=== PATIENT | female | born 1945 | race Caucasian/White ===

== ENCOUNTER → 2020-02-08 16:07 | Outpatient (CLI) | payer MEDICARE, SELFPAY ==
--- NOTE | ~2020-02-08 | MM_ITS ---
EXAMINATION: MM screening jazmín BI w lani HISTORY: Screening mammogram TECHNIQUE: Craniocaudal and mediolateral oblique 3-D tomosynthesis images were obtained and synthetic 2-D images were generated. CAD analysis was submitted and interpreted. COMPARISON: 02/25/2017, 04/02/2014, 06/27/2007 bilateral digital screening mammogram examination BREAST PARENCHYMAL COMPOSITION: There are scattered areas of fibroglandular density. FINDINGS: Stable mild asymmetry There is no evidence of suspicious mass, calcification, or architectu ral distortion to suggest malignancy in either breast. There has been no suspicious interval change. IMPRESSION: 1. No mammographic evidence of malignancy. 2. Recommend routine screening mammography in one year. BI-RADS Category 2: Benign finding(s). Reviewed, dictated and finalized at location A.
== END ==
PROVIDERS: PCP Physician Assistant; Visit Provider Physician Assistant
DX: Z12.31 Encounter for screening mammogram for malignant neoplasm of breast (principal)
CPT/HCPCS: 77063; 77067

== ENCOUNTER → 2022-07-28 13:21 | Outpatient (CLI) | payer MEDICARE, SELFPAY ==
--- NOTE | ~2022-07-28 | DEXA_ITS ---
Bone Density Report Name: LEX JOHNSON Age: 77 Sex: Female Ethnicity: White Date of : 1945 Indication: osteopenia; height loss; postmenopausal Referring Provider: MARISELA TORRES Study: Bone densitometry was performed. Exam Date: July 28, 2022 Accession number: [id number] Bone Density: Region BMD T-score Z-score Classification AP Spine (L1-L4) 1.047 0.0 2.5 Normal Femoral Neck (Left) 0.749 -0.9 1.3 Normal Total Hip (Left) 1.018 0.6 2.5 Normal Femoral Neck (Right) 0.763 -0.8 1.4 Normal Total Hip (Right) 0.989 0.4 2.3 Normal Total Hip Mean 1.004 0.5 2.4 Normal World Health Organization criteria for BMD impression classify patients as: Normal (T-score at or above -1.0), Osteopenia (T-score between -1.0 and -2.5), or Osteoporosis (T-score at or below -2.5). 10-year Fracture Risk: FRAX not reported because: All T-scores for Spine Total, Hip Total, Femoral Neck at or above -1.0 Previous Exams: Region Exam Age BMD T-score BMD Change BMD Change Date g/cm2 vs Baseline vs Previous AP Spine(L1-L4) 07/28/2022 77 1.047 0.0 0.144* 0.131* 12/14/2005 60 0.916 -1.2 0.013 0.013 06/05/2004 58 0.903 -1.3 Total Hip(Left) 07/28/2022 77 1.018 0.6 0.067* 0.071* 12/14/2005 60 0.947 0.0 -0.004 -0.004 06/05/2004 58 0.951 0.1 Total Hip(Right) 07/28/2022 77 0.989 0.4 -0.038* -0.003 12/14/2005 60 0.992 0.4 -0.035* -0.035* 06/05/2004 58 1.027 0.7 *Denotes significance at 95% confidence level, LSC for AP Spine = 0.022 g/cm2, LSC for Total Hip = 0.027 g/cm2 Clinical Information Provided by Patient: Has used the following medications: Vitamin D, Calcium Patient maximum height was 69 Menopause Age: 52 No regular weight bearing exercise Drinks caffeinated beverages Onset of menses at age 15 Number of children 2 Impression: The patient has normal bone mass. No significant bone loss was observed. Discussion: BONE DENSITY IS ABOVE THE MINIMUM DESIRABLE LEVEL AT ALL SKELETAL SITES TESTED. This patient?s bone mineral density is above the minimum desirable level (T-score -1.0 or better) at all sites measured. The patient should follow a healthful lifestyle (good nutrition with adequate calcium and vitamin D, and appropriate weight-bearing exercise). Follow-Up: Consider repeating this study in 5 years or sooner
--- NOTE | ~2022-07-28 | MM_ITS ---
EXAMINATION: MM screening jazmín BI w lani HISTORY: Screening mammogram, family history of breast cancer in her mother. TECHNIQUE: Craniocaudal and mediolateral oblique 3-D tomosynthesis images were obtained and synthetic 2-D images were generated. CAD analysis was submitted and interpreted. COMPARISON: 02/08/2020, 02/25/2017, 04/02/2014 BREAST PARENCHYMAL COMPOSITION: There are scattered areas of fibroglandular density. FINDINGS: RIGHT BREAST: No suspicious mass, calcification, or architectural distortion are identified to sugges t malignancy. There has been no suspicious interval change. LEFT BREAST: An asymmetry is present in the anterior/middle third of the slightly upper breast on the mediolateral oblique view 4 cm from the nipple. IMPRESSION: 1. Left breast asymmetry. 2. Additional mammographic views and possible breast ultrasound are recommended. BI-RADS Category 0: Incomplete: Needs additional imaging evaluation. Reviewed, dictated and finalized at location A. 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 Left breast asymmetry. 2. Additional mammographic views and possible breast ultrasound are recommended . BI-RADS Category 0: Incomplete: Needs additional imaging evaluation.
== END ==
PROVIDERS: PCP Family Medicine Adolescent Medicine; Visit Provider Physician Assistant
DX: Z12.31 Encounter for screening mammogram for malignant neoplasm of breast (principal); Z78.0 Asymptomatic menopausal state; R92.8 Other abnormal and inconclusive findings on diagnostic imaging of breast
CPT/HCPCS: 77063; 77067; 77080

== ENCOUNTER → 2022-08-20 07:45 | Outpatient (CLI) | payer MEDICARE, SELFPAY ==
--- NOTE | ~2022-08-20 | MMUS_ITS ---
EXAMINATION: MM diagnostic jazmín LT w lani, US breast LT limited HISTORY: Follow-up left breast asymmetry TECHNIQUE: Additional 3-D tomosynthesis images of the left breast were performed and synthetic 2-D im ages were generated. CAD analysis was submitted and interpreted. High resolution Limited left breast ultrasound was performed. COMPARISON: Comparison to multiple prior studies sequentially, with oldest reviewed study dated 03/23. BREAST PARENCHYMAL COMPOSITION: BREAST PARENCHYMAL COMPOSITION: There are scattered areas of fibroglandular density. FINDINGS: MAMMOGRAPHIC FINDINGS: There is a focal asymmetry superiorly and posteriorly in the left breast on MLO and mediolateral view s. The area of possible architectural distortion in the left breast superiorly and anteriorly is less apparent with spot compression views. ULTRASOUND: Limited left breast ultrasound: 1-2:00, 9 cm from the nipple there is an antiparallel hypoechoic mass with somewhat irregular margins with no internal vascularity measuring 8 x 8 x 7 mm. At 3:00, 4 cm f rom the nipple there is a 6 mm intramammary lymph node. No other discrete masses are identified. IMPRESSION: 1. Abnormal 8mm left breast mass at 1-2:00, 9 cm from the nipple. 2. Ultrasound-guided left breast biopsy recommended. BI-RADS category 4, suspicious findings. Reviewed, dictated and finalized at location A. IMPRESSION: 1. Abnormal 8mm left breast mass at 1-2:00, 9 cm from the nipple. 2. Ultrasound-guided left breast biopsy recommended. BI-RADS category 4, suspicious findings.
== END ==
PROVIDERS: PCP Family Medicine Adolescent Medicine; Visit Provider Physician Assistant
DX: N63.20 Unspecified lump in the left breast, unspecified quadrant (principal); R92.8 Other abnormal and inconclusive findings on diagnostic imaging of breast
CPT/HCPCS: 76642; 77061; 77065; G0279

== ENCOUNTER 2022-08-23 09:12 | Outpatient (CLI) | payer MEDICARE, SELFPAY ==
--- NOTE | ~2022-08-23 | MMUS_ITS ---
EXAMINATION: US GUIDED NEEDLE BIOPSY DATE: 08/23/2022 11:15 CDT INDICATION: Anti-parallel hypoechoic shadowing mass at 1-2:00 9 cm from nipple TECHNIQUE AND FINDINGS: The risks and potential benefits of the procedure were discussed with the patient, and written inform ed consent was obtained. Timeout procedure was performed. After sterile preparation of the left breas t, 1% lidocaine was utilized for local anesthesia. A 14G spring-loaded biopsy gun needle was advanced to the edge of the region of interest from a media l approach utilizing sonographic guidance. A total of 5 tissue core samples were obtained through th e lesion. An Inrad tissue marker clip was then placed at the biopsy site. Hemostasis was achieved. A sterile bandage was applied. The patient tolerated procedure well. There was some bleeding associated increased mammographic densi ty in the biopsy area. Hemostasis was obtained by manual compression. No evidence of other immediate complication. The patient was given verbal instructions prior to departing from the department. A tw o view mammogram was performed to document tissue marker clip placement. The tissue samples were subm itted to surgical pathology for histologic analysis. IMPRESSION: 1. Successful ultrasound guided biopsy of left 1-2:00 shadowing breast sonographic lesion with biops y marker placement. Please refer to pathology report for histologic analysis. Reviewed, dictated and finalized at Location A. Reviewed, dictated and finalized at location C. IMPRESSION: 1. Successful ultrasound guided biopsy of left 1-2:00 shadowing breast sonogra phic lesion with biopsy marker placement. Please refer to pathology report for histologic analysis.
== END 2022-08-23 09:13 | disposition home or self-care (01) ==
PROVIDERS: PCP Family Medicine Adolescent Medicine; Visit Provider Physician Assistant
DX: N63.22 Unspecified lump in the left breast, upper inner quadrant (principal)
CPT/HCPCS: 19083; 88305; 88342; 88360; 88365; A4648

== ENCOUNTER 2022-11-20 10:38 | Emergency (ER) | payer MEDICARE, SELFPAY ==
[2022-11-20 11:00] VITALS: BP 178/69; PULSE 62; RESP 16; TEMP 36.3; O2SAT 99
--- NOTE | 2022-11-20 11:13 | ED.FEMALEGU ---
HPI - Female Genitourinary General Chief complaint: Urogenital-Female Stated complaint: pain when urinating Time Seen by Provider: 11/20/22 11:13 Source: patient Mode of arrival: ambulatory Limitations: no limitations History of Present Illness HPI Narrative: 77 yo F presents with c/o pain with urinating and itching for approx. 5 days. When symptoms started began applying vaginal powder and also douched one time. symptoms not improving. States she is unable to see down there to see if she is irritated. Denies vaginal discharge. All systems reviewed and negative except as noted above. Related Data Home Medications Medication Instructions Recorded Confirmed calcium carbonate 600 mg-vitamin 1 tablet PO DAILY 02/15/22 11/20/22 D3 20 mcg (800 unit) tablet (Caltrate with Vitamin D3) multivit with 1 tablet PO DAILY 02/15/22 11/20/22 [id number]-lutein 8 mg iron-400 mcg-300 mcg tablet (Centrum Silver Women) triamcinolone acetonide 0.1 % 1 applic topical DAILY 02/15/22 11/20/22 topical ointment Allergies Allergy/AdvReac Type Severity Reaction Status Date / Time PSEUDOEPHEDRINE HCL AdvReac Unknown MAKES HER Uncoded 11/20/22 10:49 JUMPY, NERVOUS, SHAKEY Review of Systems Review of Systems: CONSTITUTIONAL: Denies fever, chills, or sweats. EYES: Denies visual changes, redness, or discharge. ENT: Denies rhinorrhea, congestion, sore throat, or otalgia. CARDIOVASCULAR: Denies chest pain, palpitations, or edema. RESPIRATORY: Denies cough or dyspnea. GASTROINTESTINAL: Denies abdominal pain, nausea, vomiting, or diarrhea. GENITOURINARY: Reports dysuria. Denies hematuria. reports vaginal itching SKIN: Denies rash or itching. MUSCULOSKELETAL: Denies back pain, joint pain, or myalgia. NEUROLOGIC: Denies headache, numbness, or weakness. PSYCHIATRIC: Denies anxiety or depression. All other systems reviewed are negative, except as documented in HPI. [facility] Surgical History Surgical History (Updated 10/14/22 @ 09:16 by Emanuel Main MD) History of lumpectomy of left breast (09/2022) History of varicose vein ligation Family History Family History (Updated 02/10/22 @ 15:14 by Joanne Aly MA) Father , heart Heart disease Mother Breast cancer Sibling Diabetes mellitus Social History Social History (Updated 02/15/22 @ 11:46 by Citlaly Harrison, MICHAEL) Smoking status: Never smoker Alcohol intake: current Alcohol use details: rarely - maybe a couple of times per year. Substance use: never Substance use type: does not use Living arrangements: with family Additional living arrangements comments: With Occupation/Education: retired Gender identity (if verbalized by the patient): Female Comments At time of signature, agree with nursing past medical, surgical, social and family history. There is no relevant family history pertinent to the presenting complaint. Exam Narrative: GENERAL: This is a well-nourished, well-developed patient, in no apparent distress. HEAD: normocephalic, atraumatic. EYES: PERRL. Sclera clear/white. Vision is grossly intact. EARS: External ears normal NOSE: External nose normal NECK: Neck supple, non-tender without lymphadenopathy, masses or thyromegaly. CARDIOVASCULAR: Regular rate and rhythm without murmurs, gallops, or rubs. RESPIRATORY: Clear to auscultation. Breath sounds equal bilaterally. No wheezes, rales, or rhonchi. SKIN: warm, Dry, intact with no suspicious lesions or rash, good texture and turgor. NEURO: awake, alert, and oriented to person, place and time. There were no obvious focal neurologic abnormalities. EXTREMITIES: No joint tenderness, effusion, or edema noted. Genitourinary: irritation to perineal area, bilateral labia minora, vaginal opening (raúl Dillon RN) Course Course Level of Care: Express Care Visit Vital Signs Vital signs: Vital Sig
== END 2022-11-20 11:33 | disposition home or self-care (01) ==
PROVIDERS: Emergency Provider Nurse Practitioner Family; PCP Family Medicine Adolescent Medicine
DX: N39.0 Urinary tract infection, site not specified (principal); B37.31 Acute candidiasis of vulva and vagina
CPT/HCPCS: 81003; 87086; 87147; 87181; 87186; 99213; G0463

== ENCOUNTER 2022-12-12 08:45 | Emergency (ER) | payer MEDICARE, SELFPAY ==
[2022-12-12] VITALS (10 sets, daily range): BP systolic 141–176; BP diastolic 65–82; PULSE 60–88; RESP 14–20; TEMP 36.7; O2SAT 10–100
--- NOTE | ~2022-12-12 | US_ITS ---
EXAMINATION:US venous doppler LE LT INDICATION:Left upper extremity pain TECHNIQUE: Multiple grayscale, color flow and Doppler images of the left lower extremity deep venous systems were obtained and reviewed. COMPARISON:No prior studies for comparison. FINDINGS: The common femoral, superficial femoral and popliteal veins demonstrate normal respiratory variation, augmentation and compressibility. Color flow is also seen within the posterior tibial, pe roneal, greater saphenous and profunda veins. Incidental note is made of varicose veins. IMPRESSION: 1: No lower extremity deep venous thrombosis. Reviewed, dictated and finalized at location A.
--- NOTE | 2022-12-12 09:08 | ED.EXTPRO ---
HPI - Extremity Problem General Chief complaint: Extremity Problem,Nontraumatic Stated complaint: leg in vein that has been huring all week Time Seen by Provider: 12/12/22 09:02 Source: patient Mode of arrival: ambulatory Limitations: no limitations History of Present Illness HPI Narrative: 77-year-old female presents to the ER today with concerns of redness and swelling to the left lower extremity. States the redness and swelling has been traveling up her leg. She feels that it is one of her varicose veins that is causing the issue. Denies any fevers, body aches, chills. Does have a history of having vein surgery in that left lower leg in the past. She is currently receiving radiation for breast cancer also. No recent long travels except for that trip from the side [place] the [place] to [place] for radiation. Denies being sedentary. Related Data Home Medications Medication Instructions Recorded Confirmed calcium carbonate 600 mg-vitamin 1 tablet PO DAILY 02/15/22 11/26/22 D3 20 mcg (800 unit) tablet (Caltrate with Vitamin D3) [id number] 8 mg-folic 400 1 tablet PO DAILY 02/15/22 11/26/22 mcg-K 50 mcg-lutein 300 mcg tablet (Centrum Silver Women) triamcinolone acetonide 0.1 % 1 applic topical DAILY 02/15/22 11/26/22 topical ointment Allergies Allergy/AdvReac Type Severity Reaction Status Date / Time PSEUDOEPHEDRINE HCL AdvReac Unknown MAKES HER Uncoded 12/12/22 08:45 JUMPY, NERVOUS, SHAKEY Review of Systems Review of Systems: All systems reviewed & are unremarkable except as noted in HPI and below ENT: Reports as per HPI Cardiovascular: Cardiovascular: Reports as per HPI Respiratory: Respiratory: Reports as per HPI Gastrointestinal: Gastrointestinal: Reports as per HPI Musculoskeletal: Musculoskeletal: Reports as per HPI Integumentary/Breasts: Skin/Breast: Reports as per HPI Neurologic: Reports as per HPI Psychiatric: Psychiatric: Reports as per HPI [facility] Surgical History Surgical History History of lumpectomy of left breast (09/2022) History of varicose vein ligation Family History Family History Father , heart Heart disease Mother Breast cancer Sibling Diabetes mellitus Social History Social History Smoking status: Never smoker Alcohol intake: current Alcohol use details: rarely - maybe a couple of times per year. Substance use: never Substance use type: does not use Lack of Transportation: No Lack of Food: Never True Current Housing: I Have Housing Concerned About Future Housing: No Difficulty Paying Gas/Electric Bills: No Difficulty Paying for Meds: No Currently Unemployed: No Education: High School Diploma/GED Difficulty w/ Childcare or Family Care: No Living arrangements: with family Additional living arrangements comments: With Occupation/Education: retired Gender identity (if verbalized by the patient): Female Exam Const: General: cooperative, healthy appearing, comfortable, no acute distress and well developed Orientation/consciousness: patient oriented x3 HENMT: Head: normal to inspection Eyes: General: appearance normal, both eyes and all related structures Resp: Effort & Inspection: normal respiratory effort and able to speak in complete sentences Auscultation: clear to auscultation bilaterally Cardio: Rate: regular rate Rhythm: regular rhythm Heart sounds: S1 normal heart sound present and S2 normal heart sound present Neuro: General: patient oriented x3 Extrem: Other: erythema, warmth, and edema to left upper thigh appearing to run along a vein. Firm to touch. Course Vital Signs Vital signs: Vital Signs Temperature 98.1 F 12/12/22 08:53 Pulse Rate 65 12/12/22 08:5
--- NOTE | 2022-12-12 10:22 | PC.NURSE ---
pt taken to US
== END 2022-12-12 11:30 | disposition home or self-care (01) ==
PROVIDERS: Emergency Provider Nurse Practitioner Family; PCP Family Medicine Adolescent Medicine
DX: I80.9 Phlebitis and thrombophlebitis of unspecified site (principal); L03.116 Cellulitis of left lower limb
CPT/HCPCS: 93971; 99284

== ENCOUNTER 2023-08-23 10:34 | Outpatient (CLI) | payer MEDICARE, SELFPAY ==
--- NOTE | ~2023-08-23 | MMUS_ITS ---
EXAMINATION: MM diagnostic jazmín BI w lani, US breast LT complete HISTORY: Left breast lumpectomy and radiation therapy for invasive lobular carcinoma TECHNIQUE: Additional 3-D tomosynthesis images of the breasts were performed and synthetic 2-D images were generated. CAD analysis was submitted and interpreted. High resolution complete left breast ult rasound was performed. COMPARISON: Comparison to multiple prior studies sequentially, with oldest reviewed study dated 03/23. BREAST PARENCHYMAL COMPOSITION: Not dense: There are scattered areas of fibroglandular density. FINDINGS: MAMMOGRAPHIC FINDINGS: There is asymmetry and architectural distortion in the upper outer quadrant of the left breast, consi stent with previous lumpectomy and radiation therapy. No discrete mass or architectural distortion. N o suspicious calcifications. The right breast is stable without evidence for malignancy. ULTRASOUND: Complete US of all 4 quadrants of the left breast and retroareolar region was reviewed. There is hete rogeneous soft tissue at the area of scarring at 2:00, 10 cm from the nipple without discrete mass, c onsistent with fibrosis. At 3:00, 5 cm from the nipple there is a normal appearing intramammary lymph node measuring 6 mm. No suspicious masses to suggest malignancy. IMPRESSION: 1. Probable benign postoperative changes of the left breast without suspicious sonographic correlate. 2. Recommend 6 month follow-up diagnostic left mammogram BI-RADS category 3, probably benign findings. Reviewed, dictated and finalized at location A. IMPRESSION: 1. Probable benign postoperative changes of the left breast without suspicious sonographic correlate. 2. Recommend 6 month follow-up diagnostic left mammogram BI-RADS category 3, probably benign findings.
== END 2023-08-23 10:35 ==
PROVIDERS: PCP Family Medicine Adolescent Medicine
DX: Z85.3 Personal history of malignant neoplasm of breast (principal); R92.8 Other abnormal and inconclusive findings on diagnostic imaging of breast
CPT/HCPCS: 76641; 77062; 77066; G0279

== ENCOUNTER 2024-01-10 14:12 | Outpatient (CLI) | payer MEDICARE, SELFPAY ==
[2024-01-10 18:37] LABS: Basophils Absolute Auto 0.1 K/mm3 (0.0-0.1); Basophils Percent Auto 1.2 % (0.2-1.2); Eosinophils Absolute Auto 0.2 K/mm3 (0-0.3); Eosinophils Percent Auto 2.5 % (0-4.4); Hematocrit 38.7 % (37.0-47.0); Hemoglobin 12.9 g/dL (12.0-15.0); Immature Granulocyte Absolute 0.03 K/mm3 (0.00-0.031); Immature Granulocyte Percent A 0.4 % (0-0.5); Lymphocytes Percent Auto 26.7 % (18.3-44.2); Mean Corpuscular HGB Conc 33.3 g/dl (32-36); Mean Corpuscular Hemoglobin 32.3 pg (26-34); Mean Platelet Volume 10.3 fl (7.4-10.4); Monocytes Absolute Auto 0.7 K/mm3 (0.1-0.6); Monocytes Percent Auto 9.8 % (2.6-8.5); Neutrophils Percent Auto 59.4 % (45.5-73.1); Platelet Count Result 222 k/mm3 (150-375); Red Blood Count 3.99 M/mm3 (4.2-5.4); Red Cell Distribution Width 13.5 % (11.5-14.5); White Blood Count 6.8 K/mm3 (4.5-10.0)
[2024-01-10 18:53] LABS: Alanine Aminotransferase 35 U/L (6-35); Albumin Level 4.1 g/dL (3.5-5.1); Alkaline Phosphatase 83 U/L (38-126); Anion Gap 10 mmol/L (4-12); Aspartate Amino Transferase 41 U/L (14-36); Bilirubin,Total 0.4 mg/dL (0.2-1.3); Blood Urea Nitrogen 21 mg/dL (7-17); Carbon Dioxide 29 mmol/L (22-30); Chloride 101 mmol/L (98-107); Estimated Glomerular Filt Rate 54; Glucose 87 mg/dL (65-110); Potassium 4.4 mmol/L (3.4-5.0); Sodium 140 mmol/L (137-145)
== END 2024-01-10 14:13 | disposition home or self-care (01) ==
LOC: ANHGOSHLAB 14:13
PROVIDERS: PCP Family Medicine; Visit Provider Family Medicine
DX: R53.83 Other fatigue (principal); Z13.228 Encounter for screening for other metabolic disorders
CPT/HCPCS: 36415; 80053; 85025

== ENCOUNTER 2024-03-15 14:53 | Emergency (ER) | payer MEDICARE, SELFPAY ==
[2024-03-15 14:54] VITALS: BP 183/73; PULSE 78; RESP 15; TEMP 36.4; O2SAT 100
[2024-03-15 14:59] VITALS: O2SAT 99
--- NOTE | 2024-03-15 15:14 | ED.URI ---
HPI - URI/Sore Throat General Chief Complaint: Upper Respiratory Infection Stated Complaint: i need a COVID test Time Seen by Provider: 03/15/24 14:54 Source: patient Mode of arrival: ambulatory Limitations: no limitations History of Present Illness HPI Narrative: This is a 78-year-old female who presents to the ED for COVID test. States that her brother was recently diagnosed with COVID and she would like a test. She has no symptoms other than her chronic sinus congestion. Denies any other complaint Related Data Home Medications Medication Instructions Recorded Confirmed calcium 600 mg (as 1 tablet PO DAILY 02/15/22 01/10/24 carbonate)-vitamin D3 20 mcg (800 unit) tablet (Caltrate with Vitamin D3) [id number]-[id number] 8 mg-folic 400 1 tablet PO DAILY 02/15/22 01/10/24 mcg-K 50 mcg-lutein 300 mcg tablet (Centrum Silver Women) Allergies Allergy/AdvReac Type Severity Reaction Status Date / Time No Known Allergies Allergy Verified 03/15/24 15:00 Review of Systems Review of Systems: All systems as dictated in HPI [facility] Past Medical History Medical History History of breast cancer (08/2022) Surgical History Surgical History History of lumpectomy of left breast (09/2022) History of tonsillectomy and adenoidectomy History of varicose vein ligation Family History Family History Father , heart Heart disease Cerebrovascular accident Hypertension Mother Breast cancer Cerebrovascular accident Sibling Diabetes mellitus Asthma Cerebrovascular accident Social History Social History Smoking status: Never smoker Second hand tobacco smoke exposure: No Alcohol intake: current Alcohol use details: rarely - maybe a couple of times per year. Substance use: never Substance use type: does not use Lack of Transportation: No Lack of Food: Never True Current Housing: I Have Housing Concerned About Future Housing: No Difficulty Paying Gas/Electric Bills: No Difficulty Paying for Meds: No Currently Unemployed: No Education: High School Diploma/GED Difficulty w/ Childcare or Family Care: No Living arrangements: with family Additional living arrangements comments: With Occupation/Education: retired Gender identity (if verbalized by the patient): Female Exam Narrative: GENERAL: Well-appearing, well-nourished, and in no acute distress. HEAD: Normocephalic, atraumatic. EYES: PERRLA and EOMI. ENT: Nares clear, no rhinorrhea or epistaxis. Mucous membranes moist. Oropharynx without tonsillar hypertrophy exudate or other lesions. NECK: Supple. No adenopathy or masses. CHEST: No respiratory distress. Clear to auscultation. No wheezes rales or rhonchi HEART: Regular rate and rhythm. No murmur heard. Normal peripheral pulses. ABDOMEN: Soft, nontender, nondistended, normal active bowel sounds. MSK: Normal range of motion. No edema. SKIN: Warm, dry, no rash. NEURO: Alert and oriented x4. No focal deficits. PSYCH: Normal mood and affect. Course Vital Signs Vital signs: Vital Signs Temperature 97.5 F L 03/15/24 14:54 Pulse Rate 78 03/15/24 14:54 Respiratory Rate 15 03/15/24 14:54 Blood Pressure 183/73 H 03/15/24 14:54 Pulse Oximetry 100 03/15/24 14:54 Oxygen Delivery Room Air 03/15/24 14:54 Temperature 97.5 F L 03/15/24 14:54 Pulse Rate 70 03/15/24 15:53 Respiratory Rate 17 03/15/24 15:53 Blood Pressure 162/85 H 03/15/24 15:53 Pulse Oximetry 97 03/15/24 15:53 Oxygen Delivery Room Air 03/15/24 14:59 MDM - URI/Sore Throat MDM Narrative Medical decision making narrative: Patient presents for COVID test due to her brother having COVID positive test recently. She is asymptomatic. COVID swab negative. Pt will be discharged in stable condition. Return precautions given and supportive measures discussed. Pt is understanding and agreeable with plan for discharge and follow-up with PCP. Lab Data Labs: Lab Results 03/15/24 Range/Units 15:00 Influenza A (RT-PCR) Negative (Negative) Influenza B (RT-PCR) Negative (Negative) RSV (RT-PCR) Negative (Negative) SARS-CoV-2 RNA (RT-PCR) Negative (Negative) Discharge Plan Discharge Clinical Impression: Encounter for medical screening examination Patient Disposition: Home, Self-Care Condition: Stable Instructions: Antibiotic Form Additional Instructions: COVID test is negative. You may still develop COVID of the next couple of days. Follow-up with your PCP on this issue. If you have any new or worsening symptoms please return to the ER for further evaluation. Prescriptions: No Action triamcinolone acetonide 0.1 % ointment 1 applic topical BID PRN (Reason: itching) Qty: 80 1RF calcium carbonate-vitamin D3 [Caltrate with Vitamin D3] 600 mg-20 mcg (800 unit) tablet 1 tablet PO DAILY Centrum Silver Women 8 mg iron-400 mcg-300 mcg tablet 1 tablet PO DAILY atorvastatin 80 mg tablet 80 mg PO DAILY Qty: 90 2RF Follow-up/Referrals: Blas Rachel DO [Physician] - Time of Disposition: 15:46
[2024-03-15 15:41] LABS: Influenza A QL RT-PCR Negative (Negative); Influenza B QL RT-PCR Negative (Negative); RSV RNA, RT-PCR Negative (Negative); SARS-CoV-2 RNA PCR Negative (Negative)
[2024-03-15 15:53] VITALS: BP 162/85; PULSE 70; RESP 17; O2SAT 97
== END 2024-03-15 15:54 | disposition home or self-care (01) ==
PROVIDERS: Emergency Provider Physician Assistant
DX: Z20.822 Contact with and (suspected) exposure to COVID-19 (principal); E78.00 Pure hypercholesterolemia, unspecified; Z85.3 Personal history of malignant neoplasm of breast; Z79.899 Other long term (current) drug therapy
CPT/HCPCS: 87637; 99283

== ENCOUNTER 2024-10-16 14:13 | Outpatient (CLI) | payer MEDICARE, SELFPAY ==
--- NOTE | ~2024-10-16 | XR_ITS ---
HISTORY: M25.579 - Pain in unspecified ankle and joints of unspeci... COMPARISON: None TECHNIQUE: 2 views of the right ankle were performed FINDINGS: No acute fracture or dislocation. Moderate medial and lateral soft tissue swelling. The ankle mortise is preserved. Bone mineralization is age-appropriate. Calcaneal spur is noted. Ossification of the insertion of the Achilles tendon is present. IMPRESSION: Degenerative disease and soft tissue swelling without acute fracture. Reviewed, dictated and finalized at location A. IMPRESSION: Degenerative disease and soft tissue swelling without acute fractu re.
== END 2024-10-16 14:14 | disposition home or self-care (01) ==
LOC: MICIMG 14:16
PROVIDERS: PCP Family Medicine; Visit Provider Family Medicine
DX: M19.071 Primary osteoarthritis, right ankle and foot (principal)
CPT/HCPCS: 73600

== ENCOUNTER 2024-12-05 10:18 | Outpatient (CLI) | payer MEDICARE, SELFPAY ==
--- NOTE | ~2024-12-05 | DEXA_ITS ---
Bone Density Report Name: LEX JOHNSON Age: 79 Sex: Female Ethnicity: White Date of : 1945 Indication: postmenopausal; screening for osteoporosis; height loss; Referring Provider: RUI RAMOS Study: Bone densitometry was performed. Exam Date: December 05, 2024 Accession number: [id number] Bone Density: Region BMD T-score Z-score Classification AP Spine(L1-L4) 1.048 0.0 2.7 Normal Femoral Neck (Left) 0.703 -1.3 1.0 Osteopenia Total Hip (Left) 0.907 -0.3 1.7 Normal Femoral Neck (Right) 0.764 -0.8 1.5 Normal Total Hip (Right) 0.957 0.1 2.1 Normal Total Hip Mean 0.932 -0.1 1.9 Normal World Health Organization criteria for BMD impression classify patients as: Normal (T-score at or above -1.0), Osteopenia (T-score between -1.0 and -2.5), or Osteoporosis (T-score at or below -2.5). 10-year Fracture Risk(1): Major Osteoporotic Fracture 12% Hip Fracture 2.5% Reported Risk Factors: [place] (), Neck BMD=0.703, BMI=32.1 (1) FRAX(R) Version 3.08. Fracture probability calculated for an untreated patient. Fracture probability may be lower if the patient has received treatment. Clinical Information Provided by Patient: Has used the following medications: Vitamin D, Calcium Patient maximum height was 69 Menopause Age: 52 No regular weight bearing exercise Drinks caffeinated beverages Onset of menses at age 15 Number of children 2 Impression: The patient has low bone mass, based on the Left Femoral Neck T-score. The patient has an estimated ten-year risk of hip fracture of 2.5% and an estimated ten-year risk of major fracture of 12%, based on the WHO FRAX algorithm. Discussion: BONE DENSITY IS LOW AT ONE OR MORE SKELETAL SITES. This patient's lowest T-score is low at one or more skeletal sites. It meets the World Health Organization's (WHO) criteria for ?low bone mass? (T-score between -1.0 and -2.5). The patient's 10-year risk of fracture as calculated by FRAX is less than the threshold where pharmacological therapy is recommended by the National Osteoporosis Foundation (NOF). However, all treatment decisions require clinical judgment and consideration of individual patient factors, including patient preferences, comorbidities, previous drug use, risk factors not captured in the FRAX model (e.g., frailty, falls, vitamin D deficiency, increased bone turnover, interval significant decline in bone density) and possible under or overestimation of fracture risk by FRAX. The patient should follow a healthful lifestyle (good nutrition with adequate calcium and vitamin D, and appropriate weight-bearing exercise). Follow-Up: Consider repeating this study in 2 to 3 years to reassess this patient's status, or sooner if there is some new clinical indication. Reported by: JEANNA on 12/05/2024 11:04:00 AM. Reviewed, dictated and finalized at location A.
--- OUTSIDE RECORDS SUMMARY | 2024-12-05 10:32 | XMS_ITS | Patient Health Record ---
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 Role Phone J Luis Oakley MD Primary Care Provider UnavailSabrina Brock Unavailable [phone] Lisa Acosta Unavailable [phone] Allergies No Known Allergies Reason For Referral No Information Medications Medication SIG (Take, Route, Frequency, Duration) Notes Start Date End Date Status Atorvastatin Calcium 10 MG 1 tablet Oral ly Once a day Active Social History Tobacco Use: Social History Observation Description Date Details (start date - stop date) Never Smoker NA - NA Sex Assigned At : Social History Observation Description Sex Assigned At Female Tobacco Control (Standard) Question Answer Notes Tobacco use: Nonsmoker AUDIT-C (Standard) Question Answer Notes Did you have a drink containing alcohol in the p ast year? No Problems Problem Type SNOMED Code ICD Code Onset Dates Problem Status W/U Status Risk Notes Problem Bereavement (60726261) Bereavement (Z63.4) Active confirmed Problem Adjustment disorder with other symptom (F43.29) Active confirmed Vital Signs Heart Rate 82 /min 06/20/2024 Height-cm 175.26 cm 06/20/2024 Blood pressure diastolic 80 mm Hg 06/20/2024 Weight-kg 92.53 kg 06/20/2024 Height 69 in 06/20/2024 Blood pressure systolic 150 mm Hg 06/20/2024 Weight 204 lbs 06/20/2024 BMI 30.12 kg/m2 06/20/2024 Encounters Encounter Location Date Provider Diagnosis [facility] [address] [place] [address] 01/12/2024 Thena Andrés Adjustment disorder with other symptom F43.29 ; Cognitive complaints R41.9 and Bereavement Z63.4 [facility], [facility] [address] [place] [address] 04/13/2024 Thena Andrés Elevated BP without diagnosis of hypertension R03.0 ; Bereavement Z63.4 ; Cognitive complaints R41.9 and Adjustment disorder with other symptom F43.29 [facility], [facility] [address] [place] [address] 06/20/2024 Lisa Hemann Adjustment disorder with other symptom F43.29 and Bereavement Z63.4 [facility], [facility] [address] [place] [address] 07/11/2024 Lisa Hemann Adjustment disorder with other symptom F43.29 and Bereavement Z63.4 [facility] [address] [place] [address] 08/02/2024 Lisa Hemann Adjustment disorder with other symptom F43.29 and Bereavement Z63.4 [facility] [address] [place] [address] 08/27/2024 Lisa Hemann Bereavement Z63.4 an d Adjustment disorder with other symptom F43.29 [facility] [address] [place] [address] 09/25/2024 Lisa Hemann Bereavement Z63.4 an d Adjustment disorder with other symptom F43.29 [facility] [address] [place] [address] 10/25/2024 Lisa Hemann Bereavement Z63.4 an d Adjustment disorder with other symptom F43.29 [facility], [facility] [address] [place] [address] 11/14/2024 Lisa Hemann Bereavement Z63.4 an d Adjustment disorder with other symptom F43.29 [facility] [address] [place] [address] 11/28/2024 Lisa Hemann Bereavement Z63.4 an d Adjustment disorder with other symptom F43.29 [facility], [facility] [address] [place] [address] 12/20/2023 Thena Andrés [facility], [facility] [address] [place] [address] 04/10/2024 Thena Andrés [facility] [employer] [facility] [address] [place] [address] 06/04/2024 Thena Andrés [facility] [employer] [facility] [address] [place] [address] 12/23/2023 Thena Andrés [facility], [facility] [address] [place] [address] 12/23/2023 Thena Andrés Adjustment disorder with other symptom F43.29 and Cognitive complaints R41.9 Assessments Encounter Date Diagnosis (ICD Code) Assessment Notes Treatment Notes Treatment Clinical Notes Section Notes 04/13/2024 Elevated BP without diagnosis of hypertension (ICD-10 - R03.0) discussed with pt and her daughter, will f/u with pcp if bp remains elevated at rest 06/20/2024 Bereavement (ICD-10 - Z63.4) 06/20/2024 Adjustment disorder with other symptom (ICD-10 - F43.29) 07/11/2024 Bereavement (ICD-10 - Z63.4) 07/11/2024 Adjustment disorder with other symptom (ICD-10 - F43.29) 08/02/2024 Bereavement (ICD-10 - Z63.4) 08/02/2024 Adjustment disorder with other symptom (ICD-10 - F43.29) 08/27/2024 Bereavement (ICD-10 - Z63.4) 08/27/2024 Adjustment disorder with other symptom (ICD-10 - F43.29) 09/25/2024 Bereavement (ICD-10 - Z63.4) 09/25/2024 Adjustment disorder with other symptom (ICD-10 - F43.29) 10/25/2024 Bereavement (ICD-10 - Z63.4) 10/25/2024 Adjustment disorder with other symptom (ICD-10 - F43.29) 11/14/2024 Bereavement (ICD-10 - Z63.4) 11/14/2024 Adjustment disorder with other symptom (ICD-10 - F43.29) 11/28/2024 Bereavement (ICD-10 - Z63.4) 11/28/2024 Adjustment disorder with other symptom (ICD-10 - F43.29) 01/12/2024 Adjustment disorder with other symptom (ICD-10 - F43.29) 01/12/2024 Cognitive complaints (ICD-10 - R41.9) 12/23/2023 Adjustment disorder with other symptom (ICD-10 - F43.29) 12/23/2023 Cognitive complaints (ICD-10 - R41.9) 04/13/2024 Bereavement (ICD-10 - Z63.4) pt continues to report that she is managing well, no indication of worsening depressive sx 04/13/2024 Cognitive complaints (ICD-10 - R41.9) SLUMS results suggest at least mild cognitive impairment, no safety concerns at this time 01/12/2024 Bereavement (ICD-10 - Z63.4) 04/13/2024 Adjustment disorder with other symptom (ICD-10 - F43.29) no medications recommended at this time 01/12/2024 Other will not prescribe medication at this time per patient preference, and manageable level of symptoms at the current time 04/13/2024 Other referral to the local chapter or national office of the Alzheimer's Association ( ; http://www.alz. org), the Alzheimer's Disease Education and Referral Center (ADEAR) ( ; http://www.dain. nih.gov/Alzheim ers/), Plan Of Treatment Next Appt Details Provider Name:Lisa Acosta, 12/12/2024 01:00:00 PM, [facility] [address] [facility] [address], [place], [address], Insurance Providers Payer Name Payer Address Payer Phone Subscriber Number Group Number Insured Name Patient Relationship to Insured Coverage Start Date Coverage End Date [employer] [address] [place] [phone] [id number] LEX JOHNSON Self - patient is the insured Medical (General) History Medical History History ICD Code abdominal aortic aneurysm: No atrial fibrillation: No chronic fatigue syndrome: No essential tremor: No hyperlipidemia: Yes hypertension: No Parkinson's disease: No restless leg syndrome: No stroke: No subdural hematoma: No type 1 diabetes mellitus: No vitamin B12 deficiency: Yes vitamin D deficiency: No
--- OUTSIDE RECORDS SUMMARY | 2024-12-05 10:32 | XMS_ITS | Clinical Summary ---
Author Organization [facility] Address [address] [place] [id number] Care Team Providers Care Sales Representative [employer] Name Role Phone Roberto Damian DO Unavailable [phone] [facility] MD Unavailable [phone] Sabrina Bowen MD Unavailable [phone] Juany Guerrero MD Unavailable [phone] J Luis Oakley MD Primary Care Provider [phone] Allergies No known active allergies Medications atorvastatin (LIPITOR) 80 mg tablet Take 1 tablet (80 mg total) by mouth daily 2 Active cetirizine (ZyrTEC) 10 mg tablet Take 1 tablet (10 mg total) by mouth as needed for allergies Active lactase (LACTAID) 3,000 unit tablet Take 1 tablet (3,000 Units total) by mouth daily Active loperamide (IMODIUM) 2 mg capsule Take 1 capsule (2 mg total) by mouth as needed for diarrhea Active multivit-min/ir on/folic/lutein (CENTRUM SILVER WOMEN ORAL) Take by mouth daily Active UNABLE TO FIND Take by mouth daily Med Name: Caltrate [facility] 600 Active Active Problems Problem Noted Date Diagnosed Date Personal history of radiation therapy 02/01/2023 Malignant neoplasm of upper- outer quadrant of left breast in female, estrogen receptor positive 08/23/2022 Cancer Staging:Clinical stage from 09/29/2022:Stage IA(cT1b, cN0, cM0, G2, ER+, WV+, HER2+) - Signed by Juany Guerrero MD on 09/29/2022 Pure hypercholesterolemia 07/19/2022 Assessment & Plan (07/19/2022 12:09 PM COLLECTION SYSTEMS WORKER): Continue low fat eating- limit fried foods, white starches, sweets and alcohol if applicable. Try to increase your activity and increase fruits and vegetables to 5 servings a day. Continue prescription medication (if applicable) as prescribed. Pre-diabetes 07/19/2022 Assessment & Plan (07/19/2022 12:09 PM COLLECTION SYSTEMS WORKER): I attempted to call the patient. I left a message for them to return my call. Annual physical exam 07/19/2022 Assessment & Plan (07/19/2022 12:11 PM COLLECTION SYSTEMS WORKER): Please see below for a list of your medical conditions and recommendations. Lactose intolerance 07/19/2022 Family history of arteriosclerotic cardiovascula r disease 07/19/2022 Memory loss 07/19/2022 Assessment & Plan (07/19/2022 12:17 PM COLLECTION SYSTEMS WORKER): Continue activities that cause you to critically think- crosswords, word searches, problem solving activities. Exercise. Eat healthy and limit processed foods like snack packs and white starches. Increase use of healthy fats and fish or fish oil. 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 Encounters Date Type Department Care Team Description 09/21/2024 11:45 AM CDT Office Visit [facility] Physicians [facility] Oncology [address] [place] [address] [place] [phone] Roberto Damian, DO Malignant neoplasm of upper-outer quadrant of left breast in female, estrogen receptor positive (HCC) (Primary Dx) 09/05/2024 8:55 AM CDT - 09/05/2024 11:59 PM CDT Hospital Encounter [facility] Medical Office [facility] 1 [facility] [address] [place] [id number] Abnormal mammogram Discharge Disposition: Discharge to home or self care 09/05/2024 8:55 AM CDT - 09/05/2024 11:59 PM CDT Hospital Encounter [facility] Medical Office [facility] [address] [address] Abnormal mammogram Discharge Disposition: Discharge to home or self care from Last 3 Months Surgical History Surgery Date Site/Laterality Comments DENTAL SURGERY 05/23/1989 - 05/22/1990 N/A extractions with dentures CATARACT EXTRACTION 05/23/2007 - 05/22/2008 Bilateral BREAST BIOPSY Left VEIN LIGATION AND STRIPPING 05/23/2004 - 05/22/2005 Left TONSILLECTOMY BREAST LUMPECTOMY 10/11/2022 Left Medical History Medical History Date Comments Pre-diabetes Shingles 11/23/2011 , complications of Cancer (HCC) Anxiety Breast cancer (HCC) 10/11/2022 left Hypercholesteremia History of radiation therapy 11/20/2022 lef t breast Family History Medical History Relation Name Comments Asthma Brother Diabetes Brother Probable heart failure Brother Heart attack Father Breast cancer Father's Sister No Known Problems Maternal Grandfather No Known Problems Maternal Grandmother Breast cancer Mother Epilepsy Mother Heart attack Mother No Known Problems Paternal Grandfather No Known Problems Paternal Grandmother Breast cancer Sister Relation Name Status Comments Brother Alive Father (Age 68) Father's Sister Maternal Grandfather Maternal Grandmother Mother (Age 75) Paternal Grandfather Paternal Grandmother Sister Alive Social History Tobacco Use Types Packs/Day Years Used Date Smoking Tobacco: Never Smokeless Tobacco: Never AUDIT-C Answer Date Recorded Frequency of Alcohol Consumption Not on file 09/21/2024 Q2: How many drinks containi ng alcohol do you have on a typical day when you are drinking? 1 or 2 09/21/2024 Q3: How often do you have si x or more drinks on one occasion? Less than monthly 09/21/2024 PHQ-2 Answer Date Recorded PHQ-2 Total Score (If total score is 3 or more points, staff should administer the PHQ-9) 2 07/19/2022 Personal Safety Answer Date Recorded Have you ever been in or are you currently in a harmful physical or emotional relationship or is someone making you feel afraid or unsafe? 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 Not on file Not on file Not on file Obstetrics History Para Term AB IAB SAB Ectopic Multiple Livin g Live Births 2 2 2 Date Outcome GA Total Labor Labor/2nd/3rd Weight Sex Type Anes PTL Natalie A1 A5 Name Clin Term Term Last Filed Vital Signs Vital Sign Reading Time Taken Comments Blood Pressure 168/76 09/21/2024 11:42 AM CDT rn notified Pulse 67 09/21/2024 11:42 AM CDT Temperature 36.6 C (97.9 F) 09/21/2024 11:42 AM CDT Respiratory Rate 18 09/21/2024 11:42 AM CDT Oxygen Saturation 100% 09/21/2024 11:42 AM CDT Inhaled Oxygen Concentration - - Weight 92.5 kg (204 lb) 09/21/2024 11:42 AM CDT Height 171.5 cm (5' 7.5) 09/21/2024 11:42 AM CD T Body Mass Index 31.48 09/21/2024 11:42 AM CDT Plan of Treatment Health Maintenance Due Date Last Done Comments Hepatitis C Screening 1945 Osteoporosis Screening-Bone Density Scan 1945 DTaP/Tdap/Td Vaccine (1 - Tdap) 1956 Hepatitis B Screening 1963 Pneumococcal vaccine 65+ (1 of 1 - PCV) 1995 Zoster Vaccine (1 of 2) 1995 Depression Screening 07/19/2023 07/19/2022 Well Visit 65+ 07/19/2023 07/19/2022 Fall Risk Assessment 10/12/2023 10/11/2022, 07/19/19 23 Covid-19 Vaccine (5 - 2023-2 5 season) 2024 03/30/2022, 04/28/2021, 08/11/2020, Additional history exists Influenza Vaccine (#1) 2025 02/24/2023 Breast Cancer Screening-Mammogram Discontinued 025 Medical Devices Implanted Type Area Board Worker Device Identifier Shelf Expiration Date Model / Serial / Lot [employer] [place] 20ga 7.5cm 2 Part Stabilizer Repositionable Depth Ankur [id number] - [id number] Implanted:Qty: 1 on 10/11/2022 at [facility] [employer] [id number] 08/25/2027 [id number] / / [id number] Procedures Procedure Name Priority Date/Time Associated Diagnosis Comments US BREAST LEFT LIMITED Schedule Routine, Read Routine (OP Routine) 09/05/2024 9:34 AM CDT Abnormal mammogram DIAGNOSTIC MAMMOGRAM LEFT W BRADLEY Schedule Routine, Read Routine (OP Routine) 09/05/2024 9:16 AM CDT Abnormal mammogram SCREENING MAMMOGRAM BILATERAL W BRADLEY Schedule Routine, Read Routine (OP Routine) 08/24/2024 10:38 AM CDT History of left breast cancer Screening mammogram for breast cancer from Last 3 Months or Most Recently Relevant to Health Maintenance Results * (ABNORMAL) US Breast Left Limited (09/05/2024 9:34 AM CDT) Anatomical Region Laterality Modality Breast Left Ultrasound 09/05/2024 9:59 AM CDT Narrative 09/05/2024 10:14 AM CDT EXAM DESCRIPTION: US BREAST LEFT LIMITED; DIAGNOSTIC MAMMOGRAM LEFT W BRADLEY REASON FOR STUDY: 79-year-old female with history of left breast cancer in 2022 status post breast conserving therapy. She presents today for evaluation of a left breast focal asymmetry detected on recent screening mammogram in the region of her lumpectomy site. COMPARISON: Mammograms dated 08/24/2024, 02/23/2024, and 08/23/2023. TECHNIQUE: Full field LM view and spot compression CC, XCCL, and MLO views of the left breast were obtained with digital technique using breast tomosynthesis with C view. Limited ultrasound of the left breast was performed with grayscale and color Doppler. FINDINGS: DENSITY: The breasts are heterogeneously dense, which may obscure small masses. MAMMOGRAM FINDINGS: Redemonstrated is an area of architectural distortion within the upper outer left breast, posterior depth, corresponding with the site of prior lumpectomy. On spot compression views, this appears relatively similar to prior posttreatment mammograms from August 2023 and February 2024. However, this finding appears more pronounced on the LM view with possible mass noted. There is persistent trabecular thickening and skin thickening of the left breast, in keeping with prior radiation therapy. No other definite new suspicious finding is identified in the left breast on mammogram. ULTRASOUND FINDINGS: Targeted ultrasound of the left breast at the area of prior lumpectomy (1 o'clock, 10 cm from the nipple) demonstrates postoperative scar with questionable irregular hypoechoic mass measuring approximately 2.2 x 2.1 x 1.3 cm. Sonographic evaluation of the left axilla demonstrates no evidence of suspicious axillary lymphadenopathy. IMPRESSION: 1. The finding of concern in the upper outer quadrant of the left breast at the site of prior lumpectomy (1 o'clock, 10 cm from the nipple) is indeterminate. This may represent postoperative scarring. However, recurrent malignancy can not be entirely excluded. As such, ultrasound-guided needle biopsy is recommended. 2. No evidence of left axillary lymphadenopathy on ultrasound. BIRADS: 4B Suspicious malignancy (moderate suspicion). I discussed the findings and impression with the patient at the time of the examination. This facility will contact the referring clinician's office to obtain an order for the biopsy. The patient will then be contacted to schedule the biopsy appointment. THIS IS AN ELECTRONICALLY VERIFIED FINAL REPORT 09/05/2024 10:14 AM - Electronically signed by Adam Hastings M.D., MD: Report ID: [id number] Reading Location: [facility] us Young Dc MD IMG MAMMO PROCEDURES Final Re sult * (ABNORMAL) Diagnostic Mammogram Left W Bradley (09/05/2024 9:16 AM CDT) Anatomical Region Laterality Modality Breast Left Mammography 09/05/2024 9:59 AM CDT Narrative 09/05/2024 10:14 AM CDT EXAM DESCRIPTION: US BREAST LEFT LIMITED; DIAGNOSTIC MAMMOGRAM LEFT W BRADLEY REASON FOR STUDY: 79-year-old female with history of left breast cancer in 2022 status post breast conserving therapy. She presents today for evaluation of a left breast focal asymmetry detected on recent screening mammogram in the region of her lumpectomy site. COMPARISON: Mammograms dated 08/24/2024, 02/23/2024, and 08/23/2023. TECHNIQUE: Full field LM view and spot compression CC, XCCL, and MLO views of the left breast were obtained with digital technique using breast tomosynthesis with C view. Limited ultrasound of the left breast was performed with grayscale and color Doppler. FINDINGS: DENSITY: The breasts are heterogeneously dense, which may obscure small masses. MAMMOGRAM FINDINGS: Redemonstrated is an area of architectural distortion within the upper outer left breast, posterior depth, corresponding with the site of prior lumpectomy. On spot compression views, this appears relatively similar to prior posttreatment mammograms from August 2023 and February 2024. However, this finding appears more pronounced on the LM view with possible mass noted. There is persistent trabecular thickening and skin thickening of the left breast, in keeping with prior radiation therapy. No other definite new suspicious finding is identified in the left breast on mammogram. ULTRASOUND FINDINGS: Targeted ultrasound of the left breast at the area of prior lumpectomy (1 o'clock, 10 cm from the nipple) demonstrates postoperative scar with questionable irregular hypoechoic mass measuring approximately 2.2 x 2.1 x 1.3 cm. Sonographic evaluation of the left axilla demonstrates no evidence of suspicious axillary lymphadenopathy. IMPRESSION: 1. The finding of concern in the upper outer quadrant of the left breast at the site of prior lumpectomy (1 o'clock, 10 cm from the nipple) is indeterminate. This may represent postoperative scarring. However, recurrent malignancy can not be entirely excluded. As such, ultrasound-guided needle biopsy is recommended. 2. No evidence of left axillary lymphadenopathy on ultrasound. BIRADS: 4B Suspicious malignancy (moderate suspicion). I discussed the findings and impression with the patient at the time of the examination. This facility will contact the referring clinician's office to obtain an order for the biopsy. The patient will then be contacted to schedule the biopsy appointment. THIS IS AN ELECTRONICALLY VERIFIED FINAL REPORT 09/05/2024 10:14 AM - Electronically signed by Adam Hastings M.D. MD: Report ID: [id number] Reading Location: [facility] us Young Dc MD IMG MAMMO PROCEDURES Final Re sult * (ABNORMAL) Screening Mammogram Bilateral W Bradley (08/24/2024 10:38 AM CDT) Anatomical Region Laterality Modality Breast Bilateral Mammography 08/24/2024 12:2 7 PM CDT Addenda Addendum by Gita Murrell MD on 08/24/2024 12:27 PM CDT These paragraphs after the impression should not have been included: There is no mammographic evidence of malignancy. A 1 year screening mammogram is recommended. The patient has been or will be contacted. We recommend annual screening mammography for women at average risk of breast cancer beginning at age 40, based on guidelines of the [place] [employer] (ACR Practice Parameter for the Performance of Screening and Diagnostic Mammography) and [place] [employer]. For women with and elevated risk of breast cancer, please refer to the ACR Practice Parameter for specific screening recommendations. The patient will be entered into a reminder system with a target due date of 1 year for her next screening exam. Electronically signed by: Gita Murrell M.D. Impressions 08/24/2024 12:19 PM CDT Asymmetry for which additional mammographic and possibly sonographic imaging is recommended. BI-RADS ATLAS category (left): 0 - Incomplete: Needs Additional Imaging Evaluation There is no mammographic evidence of malignancy. A 1 year screening mammogram is recommended. The patient has been or will be contacted. We recommend annual screening mammography for women at average risk of breast cancer beginning at age 40, based on guidelines of the [place] [employer] (ACR Practice Parameter for the Performance of Screening and Diagnostic Mammography) and [place] [employer]. For women with and elevated risk of breast cancer, please refer to the ACR Practice Parameter for specific screening recommendations. The patient will be entered into a reminder system with a target due date of 1 year for her next screening exam. Narrative 08/24/2024 12:19 PM CDT Screening Mammogram Bilateral W Bradley: 08/24/24 The study was acquired using full field digital technology and interpreted from soft copy. 2D digital mammographic views, as well as 3D digital tomosynthesis were performed in the CC and MLO projections. This study was resulted using Computer-Aided Detection (CAD). CLINICAL: History of left breast cancer Screening mammogram for breast cancer. Medical history includes breast cancer and radiation therapy. History of breast cancer in Mother, Sister, Father's Sister. COMPARISONS: 02/23/2024 Diagnostic Mammogram Left W Bradley 08/23/2023 Breast Imaging Diagnostic Outside Reference 08/23/2023 Breast Imaging US Outside Reference 10/11/2022 Radiologic Examination of Surgical Specimen 10/11/2022 Mammo Guided Localization Breast Left 09/22/2022 US Breast Left Limited BREAST TISSUE: The breasts are heterogeneously dense, which may obscure small masses. FINDINGS: Post-op changes from prior lumpectomy/partial mastectomy are seen on the left. No suspicious calcifications are seen within either breast. There is a focal asymmetry in the posterior left UOQ, in the region of the lumpectomy. This appears to possibly represent a change. Procedure Note Gita Murrell MD - 08/24/2024 Screening Mammogram Bilateral W Bradley: 08/24/24 The study was acquired using full field digital technology and interpretedfrom soft copy. 2D digital mammographic views, as well as 3D digitaltomosynthesis were performed in the CC and MLO projections. This study wasresulted using Computer- Aided Detection (CAD). CLINICAL: History of left breast cancer Screening mammogram for breast cancer. Medical history includes breastcancer and radiation therapy. History of breast cancer in Mother, Sister,Father's Sister. COMPARISONS: 02/23/2024 Diagnostic Mammogram Left W Bradley 08/23/2023 Breast Imaging Diagnostic Outside Reference 08/23/2023 Breast Imaging US Outside Reference 10/11/2022 Radiologic Examination of Surgical Specimen 10/11/2022 Mammo Guided Localization Breast Left 09/22/2022 US Breast Left Limited BREAST TISSUE: The breasts are heterogeneously dense, which may obscure small masses. FINDINGS: Post-op changes from prior lumpectomy/partial mastectomy areseen on the left. No suspicious calcifications are seen within eitherbreast. There is a focal asymmetry in the posterior left UOQ, in theregion of the lumpectomy. This appears to possibly represent a change. IMPRESSION: Asymmetry for which additional mammographic and possibly sonographicimaging is recommended. BI-RADS ATLAS category (left): 0 - Incomplete: Needs Additional ImagingEvaluation There is no mammographic evidence of malignancy. A 1 year screeningmammogram is recommended. The patient has been or will be contacted. We recommend annual screening mammography for women at average risk ofbreast cancer beginning at age 40, based on guidelines of the [employer] (ACR Practice Parameter for the Performance ofScreening and Diagnostic Mammography) and [place] [employer]. For women with and elevated risk ofbreast cancer, please refer to the ACR Practice Parameter for specificscreening recommendations. The patient will be entered into a reminder system with a target due dateof 1 year for her next screening exam. Young Dc MD IMG MAMMO PROCEDURES Edited R esult - Final from Last 3 Months or Most Recently Relevant to [place] [address] [facility] MEDIC[facility] MEDICARE ADVANTAGE AET MEDICARE Care Teams Sales Representative [employer] Relationship Specialty Start Date End Date J Luis Oakley MD [address] [place] [address] PCP - General Family Practice 08/24/24 [place] [address] [place] [address] MEDICAL ONCOLOGY, [facility] [address] [place] [address] Medical Oncologist/Contact [facility] H[facility]ology and Oncology 09/07/22 Young Dc MD [address] [place] [address] [address] [place] [address] Surgeon Surgery 09/30/22 Sabrina Bowen MD [address] [place] [id number] Psychiatry 12/14/23 Juany Guerrero MD [address] [place] [id number] Radiation Oncologist Radiation Oncology 01/11/24
--- OUTSIDE RECORDS SUMMARY | 2024-12-05 10:32 | XMS_ITS ---
Author Organization [facility] Address [facility] [place] [address] Care Team Providers Care Elevated Work Platform Operator Name Role Phone Roberto Damian DO Unavailable [phone] [facility] Unavailable [phone] Sabrina Bowen MD Unavailable [phone] Juany Guerrero MD Unavailable [phone] J Luis Oakley MD Primary Care Provider [phone] Active Problems Problem Noted Date Diagnosed Date Personal history of radiation therapy 02/01/2023 Malignant neoplasm of upper- outer quadrant of left breast in female, estrogen receptor positive 08/23/2022 Cancer Staging:Clinical stage from 09/29/2022:Stage IA(cT1b, cN0, cM0, G2, ER+, IL+, HER2+) - Signed by Juany Guerrero MD on 09/29/2022 Pure hypercholesterolemia 07/19/2022 Assessment & Plan (07/19/2022 12:09 PM HOSPITAL PHARMACIST): Continue low fat eating- limit fried foods, white starches, sweets and alcohol if applicable. Try to increase your activity and increase fruits and vegetables to 5 servings a day. Continue prescription medication (if applicable) as prescribed. Pre-diabetes 07/19/2022 Assessment & Plan (07/19/2022 12:09 PM HOSPITAL PHARMACIST): I attempted to call the patient. I left a message for them to return my call. Annual physical exam 07/19/2022 Assessment & Plan (07/19/2022 12:11 PM HOSPITAL PHARMACIST): Please see below for a list of your medical conditions and recommendations. Lactose intolerance 07/19/2022 Family history of arteriosclerotic cardiovascula r disease 07/19/2022 Memory loss 07/19/2022 Assessment & Plan (07/19/2022 12:17 PM HOSPITAL PHARMACIST): Continue activities that cause you to critically think- crosswords, word searches, problem solving activities. Exercise. Eat healthy and limit processed foods like snack packs and white starches. Increase use of healthy fats and fish or fish oil. Capillaritis 03/18/2017 Hemangioma of skin 09/15/2016 Venous stasis dermatitis 09/15/2016 Assessment & Plan (07/19/2022 12:10 PM HOSPITAL PHARMACIST): Stable, continue to monitor. Current Treatment and Therapy Plans No current plan information found. Past Treatment and Therapy Plans Line Care Plan Name Start Date Discontinue Date Treatment Medications Discontinue Reason Plan Provider IV MAINTENANCE THERAPY PLAN 09/09/2022 08/29/2023 No medications scheduled. Therapy Complete Roberto Damian, DO Radiation Treatments * Course C1 L BREAST 202212/01/2022 - 12/28/2022 Treatment Period Energy Fraction Dose Fractions Total Dose Plans Planned L BRS BST 12/22/2022 - 12/28/2022 250 5 / 1,250 L BREAST 12/01/2022 - 12/21/2022 267 15 / 4,005 Reference Points Delivered BST DPV 12/22/2022 - 12/28/2022 1,250 MIGUEL DPV 12/01/2022 - 12/21/2022 4,005 Treatment Summaries Malignant neoplasm of upper-outer quadrant of left breast in female, estrogen receptor positive (HCC)* Images from the original note were not included. [place] [id number] [facility], [address] [place], [place] [address] This Survivorship Care Plan is a cancer treatment summary and follow-up plan and is provided to youto keep with your health care records and to share with your primary care provider or any of your doctors and nurses. This summary is a brief record of major aspects of your cancer treatment not a detailed or comprehensive record of your care. You should review this with your cancer provider. Treatment Summary and Survivorship Care Plan for Breast Cancer General Information Patient name Tiara Alaniz (home) Date of 1945 Health Care Providers (Including Names, Institutions) Provider Name: Contact Information: Primary Care Physician Tanya Nielsen NP [phone] Surgeon Young Dc MD [phone] Radiation Oncologist Juany Guerrero MD [phone] Medical Oncologist Roberto Damian DO [phone] Treatment Summary Cancer Diagnosis Information Diagnosis Malignant neoplasm of upper-outer quadrant of left breast in female, estrogen receptor positive (HCC) Diagnosis date 08/23/2022 Staging information Cancer Staging Malignant neoplasm of upper-outer quadrant of left breast in female, estrogen receptor positive (HCC) Staging form: Breast, AJCC 8th Edition - Clinical stage from 09/29/2022: Stage IA (cT1b, cN0, cM0, G2, ER+, IL+, HER2+) - Signed by Juany Guerrero MD on 09/29/2022 Estrogen: Positive Progesterone: Positive HER2: Positive Treatment Completed Surgery Surgery date 08/23/2022 Surgical procedure Left breast biopsy Surgery date 10/11/2022 Surgical procedure Left Lumpectomy Radiation Radiation Treatments Active Plans L BREAST Most recent treatment: Dose planned: 267 cGy (fraction 15 on 12/21/2022) Total: Dose planned: 4,005 cGy Elapsed Days: 20 L BRS BST Most recent treatment: Dose planned: 250 cGy (fraction 5 on 12/28/2022) Total: Dose planned: 1,250 cGy Elapsed Days: 27 Reference Points BST DPV Most recent treatment: Dose given: 250 cGy (on 12/28/2022) Total: Dose given: 1,250 cGy Elapsed Days: 27 MIGUEL DPV Most recent treatment: Dose given: 267 cGy (on 12/21/2022) Total: Dose given: 4,005 cGy Elapsed Days: 20 Historical No historical radiation treatments to show. Systemic Therapy (chemotherapy, hormonal therapy, other) [No matching plan found] Lifetime Dose Tracking Lifetime Dose Tracking No doses have been documented on this patient for the following tracked chemicals: doxorubicin, epirubicin, idarubicin, daunorubicin, mitoxantrone, bleomycin, mitomycin, cyclophosphamide, carmustine,cisplatin, ifosfamide, carboplatin, fluorouracil, etoposide, doxorubicin HCl pegylated liposomal, et oposide phosphate, valrubicin, doxorubicin isotoxic equivalent Research Studies Persistent symptoms or side effects that have continued after finishing treatment: fatigue, numbness, pain Family History Cancer Cancer-related family history is not on file. Genetic Testing Lab Performed: Testing Complete Results Appconomy Negative OncotypeDX Recurrence score 34 Tell your provider if there is a history of cancer in your family, if another member of your familywas diagnosed with cancer since your last visit. The following risk factors may indicate that breast cancer could run in the family: Baptism heritage History of ovarian cancer in the patient or any 1st or 2nd degree relative Any 1st degree relative with breast cancer before the age of 50 Two or more 1st or 2nd degree relative diagnosed with breast cancer at any age Patient or relative diagnosed with bilateral breast cancer History of breast cancer in a male relative Treatment Ongoing Additional Treatment Start Date Planned Duration Possible Side Effects Tamoxifen Hot flashes and vaginal discharge (common); endometrial cancer, serious blood clots and eye problems (all very rare). Other rare side effects may occur. Aromatase Inhibitors (anastrozole, exemestane and letrozole) 01/31/23 5 years Hot flashes, joint/muscle aches, vaginal dryness and bone loss (common); hair thinning (rare) Other rare side effects may occur. Calcium + Vitamin D 19-50 years age and males age 51-70 years: recommend 1,000 mg/day calcium & 600 IU/day vitamin D Females age 51-70 1200 mg/day calcium and 600 IU/day vitamin D Over 70 years age take 1200 mg/day calcium and 800 IU/day of vitamin D 2000 international units Daily An irregular heartbeat; nausea, constipation; weakness, drowsiness, headache; dry mouth, or a metallic taste in your mouth; or muscle or bone pain. Follow-up Care Plan Your follow-up care plan is design to inform you and primary care providers regarding the recommended and required follow-up, cancer screening and routine health maintenance that is needed to maintain optimal health. Coordinating Provider When/How often Roberto Damian DO Every 3-6 months for year 1 to 3 Roberto Damian DO Every 6-12 months for year 4 to 5 Juany Guerrero MD Indicated by provider Young Dc MD Yearly Tanya Nielsen After 5 years, annual follow up Cancer Surveillance or other Recommended Tests Coordinating Provider Test How Often Roberto Damian DO - Year 1-5, Tanya Nielsen NP - After year 5 Mammogram for remaining breast(s) Yearly MANAGEMENT ENGINEER: No care medical director/head team physician to display Pap/pelvic exam (woman only) As indicated by provider Medical Oncologist: Roberto Damian DO, PCP: Tanya Nielsen Bone Density Every 2 years if on anaromatase inhibitor or as indicated by your provider CT/PET and tumor markers. Not recommended in the absence of signs or symptoms of cancer recurrence Possible late- and long-term effects that someone with this type of cancer and treatment may experience: Lymphedema The risk for developing lymphedema varies across treatments, time and the patient. This may occur right after surgery or months to years after treatment. It affects 12 to 25% of patients. The risk increases with the removal of lymph nodes, radiation therapy and injury. Avoid blood pressure or blood draw in affected arm if lymph nodes were removed. If you experience skin tightness, swelling, warmth or redness in your affected side, tell your provider right away. Physical therapy can improve lymph drainage. Talk with your provider about approved exercise. Avoid extreme temperature, injury or infection on the affected side. Talk to your provider about a compression stocking, especially when flying. Peripheral Neuropathy This may feel like numbness, tingling or painful sensations that develop in your hands and feet. Neuropathy can occur during or shortly after treatment. Sometimes it goes away. For some patients the symptoms can be chronic. Talk to your provider about your symptoms. Some medications may lessen the symptoms. Other approaches include acupuncture, physical therapy and exercise. Cardiovascular disease Some patients may be at risk of developing heart disease due to previous chemotherapy or local effects of radiation to the left chest. Congestive heart failure may develop in a small number of patients. Contact your provider is you have the following symptoms: Shortness of breath Difficulty breathing Fast or irregular heartbeat New or increased cough Swelling of the feet or lower legs A heart healthy lifestyle that includes diet and physical activity are proven to be helpful. Fatigue Many patients experience some level of fatigue. Some patients experience severe and ongoing fatigue. An active lifestyle with healthy sleep patterns can improve your energy levels. Talk to your provider about ongoing (more than 3 months) fatigue. Osteoporosis Patients on hormone therapies and who experience early menopause are at a higher risk of developingfractures, osteopenia (lower than normal bone density) and osteoporosis (loss of bone density). Weight bearing exercise, adequate intake calcium and vitamin D are helpful. Bone density scans are usedto evaluate bone health. Movement or strength changes Some patients experience loss of strength or difficulty with mobility or range of motion after surgery or their cancer treatments. Talk with your provider if you can no longer move the way you did before your cancer treatment or if you feel weak or unsteady or you have fallen. Physical therapy or rehabilitation may be helpful. Weight management and Nutrition Some patients find it difficult to maintain good nutrition during or after treatment. This can leadto weight loss or weight gain. Aim for a normal body mass index (BMI) of 18.5-24.9, talk to your provider about your BMI. Being overweight may increase your risk of cancer recurrence and other diseases. Eat a healthy diet, focus on lean meats and proteins, more fruits, vegetables and whole grains and low in sugars and fats. Limit red meat and avoid processed meat. Work to maintain healthy weight behaviors that include diet and physical activity. Menopause or Sexual changes or symptoms of estrogen deprivation (hot flashes, sweats, vaginal discharge or dryness, painful intercourse). The desire to engage in sexual activity may lessen due to low energy, decreased sexual function and/or changes in appearance. Symptoms of menopause may cause vaginal changes and/or dryness. Your riskdepends on your age and the kind of treatment you received. Cancer diagnosis and treatment may cause existing sexual problems to be worse. Evaluation of sexual function and professional counseling may be helpful. The use of [id number] lubricants may lessen painful intercourse. Talk with your provider about sexual changes and symptoms of menopause. Promising non-hormone treatments that may include antidepressants (drugs that treat depression), dietary changes, acupuncture and exercise may h elp lessen symptoms. Psychosocial Distress (Emotional stress, worry or depression). Many patients experience distress, anxiety or depression at some point. This can include worry, difficulty sleeping or sadness and often lessens over time. Discuss this with your provider; a referralto a therapist may be helpful. Physical activity has been shown to relieve stress. Some patients may benefit from the use of medication. It is important to remember that these symptoms can be due to other causes like diabetes or with normal aging. If these or any other new symptoms occur bring these to attention of your health care provider. These symptoms should be brought to the attention of your provider: Anything that represents a brand new symptom; Anything that represents a persistent symptom; Anything you are worried about that might be related to the cancer coming back. Please continue to see your primary care provider for all general health care recommended for a patient your age such as routine immunizations, and routine non-breast cancer screening like colonoscopy or bone density exams. Consult with your health care provider about prevention and screening for bone loss using bone density tests. Cancer survivors may experience issues with the areas listed below. If you have any concerns in these or other areas, please speak with your doctors or nurses to find out how you can get help with them. Anxiety and depression Emotional and mental health Fatigue Fertility Financial advice or assistance Insurance Memory or concentration loss Parenting Physical functioning School/work Sexual functioning Stopping smoking Weight changes Other A number of lifestyle/behaviors can affect your ongoing health, including the risk for the cancer coming back or developing another cancer. Discuss these recommendations with your doctor or nurse: Eat a healthy diet: focus on lean meats and proteins, more fruits, vegetables and whole grains and low in sugars and fats. Limit red meat and avoid processed meat. Maintain a healthy weight; avoid being overweight. Aim for a normal body mass index (BMI) of 18.5-24.9. Help learning to eat healthier, call the battalion fire chief at: [facility] [place] Have an active lifestyle, strive for 30 minutes of moderate exercise 5 times a week and strength orresistance training at least twice a week. Use broad-spectrum (UVA+UVB) sunscreen with SPF 30 or greater, is water resistant, limit time spentin the sun (10 am-4 pm), wear hat, wear UV protective clothing, wear sunglasses. Never use a tanning bed. Skin that was irradiated may be more sensitive over your lifetime. Do not smoke or chew tobacco; participate in a smoking cessation program. Limit alcohol intake, 1 drink per day for a woman and 2 drinks per day for a man. Resources you may be interested in: [facility] [facility] [place] [facility] [place] [facility] http://www.[facility]/ [facility] Information Center 1st floor of [facility] [phone]. Computer access, educational material, counseling services (FREE) Cancer Resources: www.cancer.net [place] Disabilities Act: The U.S. Department of Justice provides information about the Americans with Disabilities Act (ADA). Toll free number http://www.ada.gov/ Occupational Therapy at [facility]. Improve memory and thinking following chemotherapy. Improve your performance at home, work and in the community. or Toll free www.ot.[facility]/patients Managing your weight after a cancer diagnosis: http://www.cancer.net/sites/cancer.net/files/weight_after_cancer_diagnosis.pdf National Coalition for Cancer Survivorship: http://www.canceradvocacy.org/ [place] Cancer Society Cancer Survivors Network: http://csn.cancer.org/ [employer] Beyond Cancer: https://survivorship.cancer.gov/ an online tool for cancer survivors andcaregivers created by the [place] Cancer Society and the National Cancer [place]ingle. It provides: Information on dealing with side effects from cancer and treatment Caregivers with support and resources Practical advice about talking to friends and family about cancer Questions to ask their health care team Help understanding their rights in the workplace
--- OUTSIDE RECORDS SUMMARY | 2024-12-05 10:32 | XMS_ITS | Referral Summary ---
Author Organization [facility] Address [address] [place] [address] Care Team Providers Care Logistics/Shipper Name Role Phone Roberto Damian DO Unavailable [phone] [facility] Unavailable [phone] Sabrina Bowen MD Unavailable [phone] Juany Guerrero MD Unavailable [phone] J Luis Oakley MD Primary Care Provider [phone] Encounters Date Type Department Care Team Description 09/21/2024 11:45 AM CDT Office Visit [facility] Oncology [address] [place] [id number] Roberto Damian DO Malignant neoplasm of upper-outer quadrant of left breast in female, estrogen receptor positive (HCC) (Primary Dx) 09/05/2024 8:55 AM CDT - 09/05/2024 11:59 PM CDT Hospital Encounter [facility] Medical Office [facility] [address] [place] [id number] [facility] [facility] [address] [place], [place] [id number] Abnormal mammogram Discharge Disposition: Discharge to home or self care 09/05/2024 8:55 AM CDT - 09/05/2024 11:59 PM CDT Hospital Encounter [facility] Medical Office [facility] 1 [facility] [address] [place] [address] Abnormal mammogram Discharge Disposition: Discharge to home or self care from Last 3 Months Allergies No known active allergies Medications atorvastatin [...] from 09/29/2022:Stage IA(cT1b, cN0, cM0, G2, ER+, OR+, HER2+) - Signed by Juany Guerrero MD on 09/29/2022 Pure hypercholesterolemia 07/19/2022 Assessment & Plan (07/19/2022 12:09 PM METAL MINER): Continue low fat eating- limit fried foods, white starches, sweets and alcohol if applicable. Try to increase your activity and increase fruits and vegetables to 5 servings a day. Continue prescription medication (if applicable) as prescribed. Pre-diabetes 07/19/2022 Assessment & Plan (07/19/2022 12:09 PM METAL MINER): I attempted to call the patient. I left a message for them to return my call. Annual physical exam 07/19/2022 Assessment & Plan (07/19/2022 12:11 PM METAL MINER): Please see below for a list of your medical conditions and recommendations. Lactose intolerance 07/19/2022 Family history of arteriosclerotic cardiovascula r disease 07/19/2022 Memory loss 07/19/2022 Assessment & Plan (07/19/2022 12:17 PM METAL MINER): Continue activities that cause you to critically think- crosswords, word searches, problem solving activities. Exercise. Eat healthy and limit processed foods like snack packs and white starches. Increase use of healthy fats and fish or fish oil. Capillaritis 03/18/2017 Hemangioma of skin 09/15/2016 Venous stasis dermatitis 09/15/2016 Assessment & Plan (07/19/2022 12:10 PM METAL MINER): Stable, continue to monitor. 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 Not on file Not on file Last Filed Vital Signs Vital Sign Reading [...] 09/21/2024 11:42 AM CDT Plan of Treatment Not on file Medical Devices Implanted Type Area Lot Technician Device Identifier Shelf Expiration Date Model / Serial / Lot [employer] Mammoth 20ga 7.5cm 2 Part Stabilizer Repositionable Depth Ankur [id number] - [id number] Implanted:Qty: 1 on 10/11/2022 at [facility] [employer] [id number] 08/25/2027 [id number] / / [id number] Procedures Procedure Name Priority Date/Time Associated Diagnosis [...] by Adam Hastings M.D., MD: Report ID: [id number] Reading Location: [facility] us Young Dc MD IMG MAMMO PROCEDURES [...] by Adam Hastings M.D. MD: Report ID: [id number] Reading Location: [facility] us Young Dc MD IMG MAMMO PROCEDURES [...] age 40, based on guidelines of the [place] [employer] (ACR Practice Parameter for the Performance of Screening and Diagnostic Mammography) and [place] [employer]. For women [...] age 40, based on guidelines of the [place] [employer] (ACR Practice Parameter for the Performance of Screening and Diagnostic Mammography) and [place] [employer]. For women [...] the Performance ofScreening and Diagnostic Mammography) and [place] [employer] of[employer]etricians and Gynecologists. For women with [...] Most Recently Relevant to Health [place] [address] T MEDICARE [facility] MEDICARE ADVANTAGE AET MEDICARE [facility] MEDICARE Address: [address] [place] [address] Care Teams Logistics/Shipper Relationship Specialty Start Date End Date J Luis Oakley MD [address] [place] [address] PCP - General Family Practice 08/24/24 Roberto Damian DO [address] [place] [address] MEDICAL ONCOLOGY, [facility] [address] [place] [address] Medical Oncologist/Professor Of Communication Arts Hematology and Oncology 09/07/22 Young Dc MD [address] [place] [address] [address] [place] [address] Surgeon Surgery 09/30/22 [place] [address] [place] [address] [address] [place] [address] Psychiatry 12/14/23 Juany Guerrero MD [address] [place] [address] [address] [place] [address] Radiation Oncologist Radiation Oncology 01/11/24
== END 2024-12-05 10:19 | disposition home or self-care (01) ==
LOC: ANHIMG 10:19
PROVIDERS: PCP Family Medicine; Visit Provider Family Medicine
DX: Z78.0 Asymptomatic menopausal state (principal); M85.88 Other specified disorders of bone density and structure, other site
CPT/HCPCS: 77080

== ENCOUNTER 2025-01-15 12:20 | Outpatient (RCR) | payer MEDICARE, SELFPAY ==
--- NOTE | 2025-01-15 12:50 | WNDPHOTO ---
PHOTO ONLY - See Nursing Notes and/ or assessments for documentation.
[2025-01-15 13:22] VITALS: BMI 30.6
== END 2025-04-01 09:59 | disposition home or self-care (01) ==
LOC: ANHWOC 12:20
PROVIDERS: PCP Family Medicine; Visit Provider Family Medicine
DX: M25.571 Pain in right ankle and joints of right foot (principal)
CPT/HCPCS: 99213; G0463

== ENCOUNTER 2025-02-06 00:23 | Day surgery (SDC) | payer MEDICARE, SELFPAY ==
[2025-01-22 13:58] VITALS: BMI 32.1
[2025-02-06 09:08] VITALS: BP 178/69; PULSE 58; RESP 18; TEMP 36.1; O2SAT 100
[2025-02-06] MEDS: LACTATED RINGERS 1,000 ML 150 ML IV CONT (09:17)
--- NOTE | 2025-02-06 09:42 | WPDANESEPPF ---
Anes - Initial Pre Proc Eval Procedure: Operation Date: 02/06/25 10:00 Proposed Procedures p Screening Colonoscopy - eGrry Bauman MD Date/Time: 02/06/25 09:42 Surgeon: Gerry Bauman MD Pre Op Diagnosis: Screening Patient Data Age: 79 Gender: F Height: 1.75 m Weight: 92.3 kg Last Vital Signs Temp 97 F L 02/06/25 09:08 Pulse 58 L 02/06/25 09:08 Resp 18 02/06/25 09:08 BP 178/69 H 02/06/25 09:08 Pulse Ox 100 02/06/25 09:08 O2 Del Method Room Air 02/06/25 09:08 Allergies Allergy/AdvReac Type Severity Reaction Status Date / Time No Known Allergies Allergy Verified 02/06/25 09:07 Home Medications ?Medication ?Instructions ?Recorded ?Confirmed ?Type calcium 600 mg (as 1 tablet PO DAILY 02/15/22 02/06/25 History carbonate)-vitamin D3 20 mcg (800 unit) tablet (Caltrate with Vitamin D3) [id number] 8 mg-folic 400 1 tablet PO DAILY 02/15/22 02/06/25 History mcg-K 50 mcg-lutein 300 mcg tablet (Centrum Silver Women) triamcinolone acetonide 0.1 % 1 applic topical BID PRN itching 06/14/24 01/22/25 Rx topical ointment #80 grams atorvastatin 80 mg tablet 80 mg PO DAILY #90 tabs 12/04/24 02/06/25 Rx escitalopram oxalate 5 mg tablet 5 mg PO DAILY 01/22/25 02/06/25 History Patient hx anesthesia problems: none Family hx anesthesia problems: none Results Review: All pre-operative results and documents have been reviewed as part of the pre-operative evaluation. [facility] Past Medical History Medical History History of breast cancer (08/2022) Surgical History Surgical History History of tonsillectomy and adenoidectomy History of lumpectomy of left breast (09/2022) History of varicose vein ligation Family History Family History Father , heart Heart disease Cerebrovascular accident Hypertension Mother Breast cancer Cerebrovascular accident Sibling Diabetes mellitus Asthma Cerebrovascular accident Social History Social History Smoking status: Never smoker Second hand tobacco smoke exposure: No Alcohol intake: never Alcohol use details: rarely - maybe a couple of times per year. Substance use: never Substance use type: does not use Lack of Transportation: No Lack of Food: Never True Current Housing: I Have Housing Concerned About Future Housing: No Difficulty Paying Gas/Electric Bills: No Difficulty Paying for Meds: No Currently Unemployed: No Education: High School Diploma/GED Difficulty w/ Childcare or Family Care: No Living arrangements: with family Additional living arrangements comments: With Occupation/Education: retired Gender identity (if verbalized by the patient): Female Anes - Eval Final PreProcedure Day of Procedure 02/06/25 09:42 Patient weight: obese Lungs: normal air movement Airway: Mallampati scale class II Neurological: alert and oriented Last oral intake: >/= 8 hours ASA classification: II Emergent: no Anesthetic plan: proceed Anesthesia type and monitoring: general GIVS and standard monitoring Results Review: All pre-operative results and documents have been reviewed as part of the pre-operative evaluation. Hyperlipidemia. BMI 30. Informed Consent: The patient's anesthetic plan and its attendant risks and benefits were discussed with the patient/family/POA. Questions were solicited and answers provided to the satisfaction of the patient/family/POA.
--- NOTE | 2025-02-06 09:57 | WPDANESEPPF ---
Anes - Initial Pre Proc Eval Procedure: Operation Date: 02/06/25 10:00 Proposed Procedures p Screening Colonoscopy - Gerry Bauman MD Date/Time: 02/06/25 09:57 Surgeon: Gerry Bauman MD Pre Op Diagnosis: Screening Patient Data Age: 79 Gender: F Height: 1.75 m Weight: 92.3 kg Last Vital Signs Temp 97 F L 02/06/25 09:08 Pulse 58 L 02/06/25 09:08 Resp 18 02/06/25 09:08 BP 178/69 H 02/06/25 09:08 Pulse Ox 100 02/06/25 09:08 O2 Del Method Room Air 02/06/25 09:08 Allergies Allergy/AdvReac Type Severity Reaction Status Date / Time No Known Allergies Allergy Verified 02/06/25 09:07 Home Medications ?Medication ?Instructions ?Recorded ?Confirmed ?Type calcium 600 mg (as 1 tablet PO DAILY 02/15/22 02/06/25 History carbonate)-vitamin D3 20 mcg (800 unit) tablet (Caltrate with Vitamin D3) [id number] 8 mg-folic 400 1 tablet PO DAILY 02/15/22 02/06/25 History mcg-K 50 mcg-lutein 300 mcg tablet (Centrum Silver Women) triamcinolone acetonide 0.1 % 1 applic topical BID PRN itching 06/14/24 01/22/25 Rx topical ointment #80 grams atorvastatin 80 mg tablet 80 mg PO DAILY #90 tabs 12/04/24 02/06/25 Rx escitalopram oxalate 5 mg tablet 5 mg PO DAILY 01/22/25 02/06/25 History Patient hx anesthesia problems: none Family hx anesthesia problems: none Results Review: All pre-operative results and documents have been reviewed as part of the pre-operative evaluation. [facility] Past Medical History Medical History History of breast cancer (08/2022) Surgical History Surgical History History of tonsillectomy and adenoidectomy History of lumpectomy of left breast (09/2022) History of varicose vein ligation Family History Family History Father , heart Heart disease Cerebrovascular accident Hypertension Mother Breast cancer Cerebrovascular accident Sibling Diabetes mellitus Asthma Cerebrovascular accident Social History Social History Smoking status: Never smoker Second hand tobacco smoke exposure: No Alcohol intake: never Alcohol use details: rarely - maybe a couple of times per year. Substance use: never Substance use type: does not use Lack of Transportation: No Lack of Food: Never True Current Housing: I Have Housing Concerned About Future Housing: No Difficulty Paying Gas/Electric Bills: No Difficulty Paying for Meds: No Currently Unemployed: No Education: High School Diploma/GED Difficulty w/ Childcare or Family Care: No Living arrangements: with family Additional living arrangements comments: With Occupation/Education: retired Gender identity (if verbalized by the patient): Female Anes - Eval Final PreProcedure Day of Procedure 02/06/25 09:57 Patient weight: obese Lungs: normal air movement Airway: Mallampati scale class II Neurological: alert and oriented Last oral intake: >/= 8 hours ASA classification: II Emergent: no Anesthetic plan: proceed Anesthesia type and monitoring: general GIVS and standard monitoring Results Review: All pre-operative results and documents have been reviewed as part of the pre-operative evaluation. Hyperlipidemia, pt can walk 1 fos, no cp or sob. Informed Consent: The patient's anesthetic plan and its attendant risks and benefits were discussed with the patient/family/POA. Questions were solicited and answers provided to the satisfaction of the patient/family/POA.
--- NOTE | 2025-02-06 10:01 | PM.HPGS ---
History of Present Illness History of Present Illness Consent: Risks, benefits, and alternatives have been discussed and questions answered. Patient agrees to proceed with procedure. Chief complaint: Screening Narrative: Tiara Alaniz is a 79 year old female here for screening colonoscopy, last one more than 10 years ago Review of Systems Review of Systems: All systems reviewed & are unremarkable except as noted in HPI and below PMFSH Past Medical History Medical History History of breast cancer (08/2022) Surgical History Surgical History History of tonsillectomy and adenoidectomy History of lumpectomy of left breast (09/2022) History of varicose vein ligation Family History Family History Father , heart Heart disease Cerebrovascular accident Hypertension Mother Breast cancer Cerebrovascular accident Sibling Diabetes mellitus Asthma Cerebrovascular accident Social History Social History Smoking status: Never smoker Second hand tobacco smoke exposure: No Alcohol intake: never Alcohol use details: rarely - maybe a couple of times per year. Substance use: never Substance use type: does not use Lack of Transportation: No Lack of Food: Never True Current Housing: I Have Housing Concerned About Future Housing: No Difficulty Paying Gas/Electric Bills: No Difficulty Paying for Meds: No Currently Unemployed: No Education: High School Diploma/GED Difficulty w/ Childcare or Family Care: No Living arrangements: with family Additional living arrangements comments: With Occupation/Education: retired Gender identity (if verbalized by the patient): Female Meds Home Medications and Allergies Home Medications ?Medication ?Instructions ?Recorded ?Confirmed ?Type calcium 600 mg (as 1 tablet PO DAILY 02/15/22 02/06/25 History carbonate)-vitamin D3 20 mcg (800 unit) tablet (Caltrate with Vitamin D3) [id number] 8 mg-folic 400 1 tablet PO DAILY 02/15/22 02/06/25 History mcg-K 50 mcg-lutein 300 mcg tablet (Centrum Silver Women) triamcinolone acetonide 0.1 % 1 applic topical BID PRN itching 06/14/24 01/22/25 Rx topical ointment #80 grams atorvastatin 80 mg tablet 80 mg PO DAILY #90 tabs 12/04/24 02/06/25 Rx escitalopram oxalate 5 mg tablet 5 mg PO DAILY 01/22/25 02/06/25 History Allergies Allergy/AdvReac Type Severity Reaction Status Date / Time No Known Allergies Allergy Verified 02/06/25 09:07 Vital Signs Vital Signs - 24 hr 02/06/25 09:08 Temperature 97 F L Pulse Rate 58 L Respiratory Rate 18 Blood Pressure 178/69 H Pulse Oximetry 100 Oxygen Delivery Room Air Exam Const: General: comfortable and no acute distress HENMT: Face/Nose/Sinus: Normal nares present Eyes: General: appearance normal, both eyes and all related structures Neck: Neck: no JVD Resp: Auscultation: clear to auscultation bilaterally Cardio: Rate: regular rate Rhythm: regular rhythm GI: Inspection: non-distended GI Palp: Yes Soft to palpation Skin: General skin exam: normal color Neuro: Speech: normal speech Extrem: General: normal to inspection Psych: Mental Status: mental status grossly normal Assessment and Plan Assessment and plan (1) Colon cancer screening: Code(s): Z12.11 - Encounter for screening for malignant neoplasm of colon Status: Acute Assessment and Plan: colonoscopy
[2025-02-06 10:21] VITALS: BP 162/73; PULSE 64; RESP 23; O2SAT 97
--- NOTE | 2025-02-06 10:21 | S_PTH ---
PATIENT: Tiara Alaniz LOC: [facility]#:[id number] AGE/SX: 79/F ROOM: RE02/06/[address]: Gerry Bauman MD : 1945 BED: DIS: 02/06/2025 SPEC #: [id number] RECD: 02/06/25 14:28 STATUS: CECE REQ #: [id number] SHLOMO: 02/06/25 10:[address]: Gerry Bauman DEPT: [facility] Surgical RECD BY: Genoveva Berrios ENTERED: 02/06/25 14:29 SP TYPE: Surgical OTHR DR: J Luis Oakley MD Tissues: A - Colon Polypectomy Procedures: Hematoxylin and Eosin Stain Gross and Microscopic Level 4
[2025-02-06 10:31] VITALS: BP 156/65; PULSE 63; RESP 21; O2SAT 97
[2025-02-06 10:41] VITALS: BP 163/77; PULSE 62; RESP 20; O2SAT 100
== END 2025-02-06 11:09 | disposition home or self-care (01) ==
PROVIDERS: PCP Family Medicine; Referring Provider Family Medicine; Visit Provider Internal Medicine Gastroenterology
PROC: 0DJD8ZZ Inspection of Lower Intestinal Tract, Via Natural or Artificial Opening Endoscopic (ICD-10-PCS; CPT 45378; principal; 2025-02-06 10:00)
DX: Z12.11 Encounter for screening for malignant neoplasm of colon (principal); D12.2 Benign neoplasm of ascending colon; K64.8 Other hemorrhoids; K57.30 Diverticulosis of large intestine without perforation or abscess without bleeding; E78.5 Hyperlipidemia, unspecified; E66.9 Obesity, unspecified; Z68.30 Body mass index [BMI] 30.0-30.9, adult; Z98.890 Other specified postprocedural states; Z90.12 Acquired absence of left breast and nipple; Z85.3 Personal history of malignant neoplasm of breast; Z80.3 Family history of malignant neoplasm of breast; Z82.49 Family history of ischemic heart disease and other diseases of the circulatory system
CPT/HCPCS: 45380; 45385; 88305; J2704; J7120